=== PATIENT | female | born 1985 | race Caucasian/White ===

== ENCOUNTER 2016-09-18 22:00 | Inpatient (IN) | payer OTHER ==
[2016-09-18] MEDS ORDERED: OLIVE OIL 118 ML BTL MISC PRN (22:13)
[2016-09-18] MEDS ORDERED: OXYTOCIN/RINGERS LACTATE 1,000 ML IV PRN (22:13)
[2016-09-18] MEDS ORDERED: EPSOM SALT 454 GM TP PRN (22:13)
[2016-09-18] MEDS ORDERED: LR 1,000 ML IV PRN (22:13)
[2016-09-18] MEDS ORDERED: TERBUTALINE SULFATE 1 MG/ML VIAL IV PRN (22:13)
[2016-09-18] MEDS ORDERED: AMPICILLIN SODIUM 2 GM in NS 100 ML IV ONE (22:18)
[2016-09-18] MEDS ORDERED: AMPICILLIN SODIUM 2 GM/10 ML VIAL ONE (22:20)
[2016-09-18] MEDS ORDERED: NS 100 ML BAG (MINI-BAG) IV ONE (22:21)
[2016-09-18 22:56] LABS: % IMMATURE GRANULYOCYTES 0.7 % (0.0-1.1); ADD DIFF? NO; ADD MORPH? NO; ADD SCAN? NO; ATYPICAL LYMPHOCYTE FLAG 0 (0-99); FRAGMENT RBC FLAG 0 (0-99); HEMATOCRIT 37.1 % (38.0-47.0); HEMOGLOBIN 12.9 g/dL (12.6-16.3); LEFT SHIFT FLG 0 (0-99); LIPEMIA HEMOLYSIS FLAG 90 (0-99); MEAN CELL HEMOGLOBIN 30.6 pg (27.9-34.1); MEAN CELL HEMOGLOBIN CONCENTR. 34.8 g/dL (32.4-36.7); MEAN CELL VOLUME 88.1 fL (81.5-99.8); MEAN PLATELET VOLUME 10.8 fL (8.7-11.7); PLATELET CLUMPS FLAG 0 (0-99); PLATELET COUNT 199 10^3/uL (150-400); RED BLOOD CELL COUNT 4.21 10^6/uL (4.18-5.33); RED CELL DISTRIBUTION WIDTH 12.9 % (11.5-15.2)
[2016-09-18] MEDS ORDERED: AMMONIA AROMATIC 1 EACH AMP IH ONE (23:01)
[2016-09-18] MEDS ORDERED: TERBUTALINE SULFATE 1 MG/ML VIAL ONE (23:01)
[2016-09-18] MEDS ORDERED: LIDOCAINE 1% 300 MG/30 ML SDV ONE (23:01)
[2016-09-18] MEDS ORDERED: OLIVE OIL 118 ML BTL ONE (23:01)
[2016-09-18] MEDS ORDERED: OXYTOCIN 10 UNIT/ML VIAL ONE (23:02)
[2016-09-18] MEDS ORDERED: MISOPROSTOL 200 MCG TAB ONE (23:02)
[2016-09-18 23:05] LABS: ALANINE AMINOTRANSFERASE 31 IU/L (9-52); ASPARTATE AMINOTRANSFERASE 22 IU/L (14-46); BILIRUBIN,TOTAL 0.5 mg/dL (0.1-1.4); BILIRUBIN-CONJUGATED 0.3 mg/dL (0.0-0.5); BILIRUBIN-UNCONJUGATED 0.2 mg/dL (0.0-1.1); CREATININE 0.6 mg/dL (0.6-1.0); GLOMERULAR FILTRATION RATE > 60; LACTATE DEHYDROGENASE 503 IU/L (313-618); URIC ACID 7.1 mg/dL (2.5-6.8)
--- NOTE | 2016-09-19 00:03 | GHP ---
[f rep st] HISTORY AND PHYSICAL DATE OF ADMISSION: 09/18/2016 HISTORY UPON ADMISSION: The patient is a 31-year-old, G1, P0, at 39+ weeks gestation, with an estim ated due date of 09/24/2016, who presents due to increasing labor pattern with contractions every 3 minutes for several hours. The patient has had prodromal labor with contractions much of 09/17 as w ell as through the night and all day today. The patient's contraction pattern has not been very dil igent. This afternoon, the patient took a Benadryl to try to get some rest and had a short nap; how ever, then, the contractions really started increasing. Patient's bag of water intact upon arrival but was having mucousy bloody discharge throughout the day. Reporting good movement. The pat ient's hope and intent was to manage naturally through labor, but the patient requests nitrous upon admission. Patient's initial cervical exam was 8 cm dilated. CARE: The patient has been with [facility] since 8 weeks' gestation. Patient gonzalez s not had anything complicating her except for an ultrasound at 20 weeks showing large for gestational age at the 95th percentile, and a repeat ultrasound was performed at 30 weeks. At that time, the growth was at the 82nd percentile with normal fluid and normal placenta. No issues other than that. LABS: Maternal blood type O negative with negative antibody screen. RPR nonreactive. Rub tapan immune. Hepatitis B surface antigen negative. HIV negative. Cystic fibrosis, SMA, fragile X all negative. Pap smear normal. Gonorrhea and chlamydia are negative. Verifi testing was negative . MSAFP was negative. 1-hour Glucola was normal. Hematocrit 37% with a repeat 38%. GBS culture w as positive. PAST MEDICAL HISTORY: The patient has a history of morphea diagnosed in 2011 with decreased symptom s since the patient cut out gluten in her diet. PAST SURGICAL HISTORY: Right ulnar nerve and ligament repair in 2011. Tonsils removed in 1st grade . Also, patient with a history of a ruptured left Achilles tendon in 2011. ALLERGIES: No known drug allergies. CURRENT MEDICATIONS: vitamins. SOCIAL HISTORY: The patient is , lives with her , Ezequiel. Patient is a nonsmoker. No alcohol or drug use. Patient has no history of an eating disorder, however, has been overly focuse d on her weight in the past. PHYSICAL EXAMINATION: GENERAL: Upon admission, the patient is a well-developed, well-nourished, wh ite female, petite. The patient looks exhausted and is in moderate discomfort with contractions upo n admission. VITAL SIGNS: The patient's initial blood pressure was 137/90 with a repeat 134/82. T he patient is afebrile. The patient's last recorded weight was 155 pounds. Upon monitoring, the in itial assessment shows the fetus with an audible deceleration down to the 70s lasting 2-3 nanci kathryn but then was tracked upward with spontaneous recovery. The patient continues now with a categor y 2 tracing with infrequent variable decelerations. Baseline is in the 130s with good [id number]-xfce variability and accelerations. Contractions nonconsistent, anywhere from 3-7 minutes. Cervical exa m done by the nurse, Raymundo, upon admission, was 8 cm dilated, 90% effaced at 0 station. ASSESSMENT: Intrauterine at 39+ weeks, in active labor. There was no obvious palpable ba g of water but no story consistent with rupture of membranes. GBS culture is positive, and the stalin ent has gotten 1 dose of ampicillin. Rh negative. The patient received RhoGAM on July 04. PLAN: The patient will continue with nitrous for pain management, however, may have an epidural if desired. Due to borderline blood pressures upon admission, the patient had PIH labs drawn. We will watch patient's contraction pattern and offer AROM if the patient desires. /[id number]/MODL
[2016-09-19] MEDS ORDERED: fentaNYL 100 MCG/2 ML INJ ONE (00:19)
[2016-09-19] MEDS ORDERED: BUPIVACAINE 0.25% 30 ML SDV ONE (00:20)
[2016-09-19] MEDS ORDERED: PHENYLEPHRINE HCL 100 MCG/ML SYR ONE (00:20)
[2016-09-19] MEDS ORDERED: fentaNYL 2MCG/ML/BUP 0.1% RTU 100 ML BAG EP ONE (00:21)
--- NOTE | 2016-09-19 00:37 | OBPROG ---
OBG Progress Note Assessment/Plan: Assessment: IUP at 39w1d in active labor - protracted labor now getting JOSE LUIS Plan: check after JOSE LUIS and place IUPC if needed and pit prn 09/19/16 00:33 Subjective: Pt exhausted - tried tub but no help and felt nitrous only made her dizzy. requesting JOSE LUIS Objective: 09/18/16 22:40 09/18/16 22:40 Patient ABO/Rh O NEGATIVE 09/18/16 22:40 Uric Acid 7.1 mg/dL (2.5-6.8) H 09/18/16 22:40 Total Bilirubin 0.5 mg/dL (0.1-1.4) 09/18/16 22:40 Conjugated Bilirubin 0.3 mg/dL (0.0-0.5) 09/18/16 22:40 Unconjugated Bilirubin 0.2 mg/dL (0.0-1.1) 09/18/16 22:40 AST 22 IU/L (14-46) 09/18/16 22:40 ALT 31 IU/L (9-52) 09/18/16 22:40 Lactate Dehydrogenase 503 IU/L (313-618) 09/18/16 22:40 - SVE Dilation (cm): 8 Effacement (%): 90 Station: 0 Current Contraction Pattern: Regular (q 2-3 min) FHR (bpm): 130 FHR Pattern Variability: Moderate FHR Category: 1 Membranes: SROM (unknown timing - likely what pt felt was bloody mucus through much of day.) Amniotic Fluid Color: Blood Tinged ICD10 Worksheet Patient Problems: Problems 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
[2016-09-19] MEDS ORDERED: PHENYLEPHRINE HCL 100 MCG/ML SYR IVP PRN (01:19)
[2016-09-19] MEDS ORDERED: ONDANSETRON 4 MG/2 ML VIAL IVP PRN (01:19)
[2016-09-19] MEDS ORDERED: NALOXONE HCL 0.4 MG/ML INJ IVP PRN (01:19)
[2016-09-19] MEDS ORDERED: LR 500 ML IV SCH (01:30)
[2016-09-19] MEDS ORDERED: fentaNYL 2MCG/ML/BUP 0.1% RTU 100 ML EP SCH (01:30)
[2016-09-19] MEDS ORDERED: LR 500 ML IV PRN (02:35)
[2016-09-19] MEDS: AMPICILLIN SODIUM 1 GM in NS 100 ML IV SCH ×3 (02:36→15:03)
[2016-09-19] MEDS ORDERED: OXYTOCIN/RINGERS LACTATE 500 ML IV SCH (03:00)
--- NOTE | 2016-09-19 05:47 | OBPROG ---
OBG Progress Note Assessment/Plan: Assessment: IUP at 39w1d in active labor - protracted labor JOSE LUIS and on pitocin Plan: SROM of forebag with thin mec, complete 09/19/16 00:33 09/19/16 05:44 Subjective: Feeling pressure - not intense Objective: 09/18/16 22:40 09/18/16 22:40 Patient ABO/Rh O NEGATIVE 09/18/16 22:40 Uric Acid 7.1 mg/dL (2.5-6.8) H 09/18/16 22:40 Total Bilirubin 0.5 mg/dL (0.1-1.4) 09/18/16 22:40 Conjugated Bilirubin 0.3 mg/dL (0.0-0.5) 09/18/16 22:40 Unconjugated Bilirubin 0.2 mg/dL (0.0-1.1) 09/18/16 22:40 AST 22 IU/L (14-46) 09/18/16 22:40 ALT 31 IU/L (9-52) 09/18/16 22:40 Lactate Dehydrogenase 503 IU/L (313-618) 09/18/16 22:40 - SVE Dilation (cm): 10 Effacement (%): 100 Station: 0 Current Contraction Pattern: Regular (q 2-4 min on 8 mu/min pit) FHR (bpm): 130 FHR Pattern Variability: Moderate FHR Category: 2 (variables with quick recovery) Membranes: SROM (of forebag) Amniotic Fluid Color: Meconium Stained-Light ICD10 Worksheet Patient Problems: Problems 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
[2016-09-19] MEDS ORDERED: ACETAMINOPHEN 500 MG TAB PO ONE (06:30)
[2016-09-19] MEDS: IBUPROFEN 600 MG TAB PO PRN ×3 (08:10→20:07)
[2016-09-19] MEDS ORDERED: ACETAMINOPHEN 325 MG TAB PO PRN (08:20)
--- NOTE | 2016-09-19 08:25 | OBPROC ---
- Labor and Delivery Onset of Contractions Date: 09/18/16 Onset of Contractions Time: 17:00 Onset of Contractions Type: Augmented (SOOC but augmented with pit after JOSE LUIS) Rupture of Membranes Date: 09/19/16 Rupture of Membranes Time: 05:25 Rupture of Membranes Type: Spontaneous Amniotic Fluid Color: Meconium Stained-Light Dilation Complete Time: 05:24 Delivery Type: Spontaneous Placenta Delivery Date: 09/19/16 Placenta Delivery Time: 07:41 Episiotomy/Laceration: 2nd Degree, Midline, Perineal Repair: 2-0, 3-0, Vicryl EBL: 350 Complications: None - Medications Labor Augmentation/Induction Meds Used: Pitocin, Other (Specify) (Amp x 3 doses for GBS) Labor Augmentation/Induction Indication: Other (Specify) (arrest of dilation after JOSE LUIS) Anesthesia: Epidural - [place] Info A Delivery Date: 09/19/16 Delivery Time: 07:32 Sex of Infant: Female (Teresa) Score (1 Min): 8 Score (5 Min): 9
[2016-09-19 20:05] VITALS: RESP 16
[2016-09-19] MEDS: DOCUSATE SODIUM 100 MG CAP PO PRN (20:08)
[2016-09-20] MEDS: IBUPROFEN 600 MG TAB PO PRN ×2 (04:16→10:33)
[2016-09-20 09:58] VITALS: BP 112/71; PULSE 87; TEMP 98.2; O2SAT 94
[2016-09-20] MEDS: DOCUSATE SODIUM 100 MG CAP PO PRN (10:33)
--- NOTE | 2016-09-20 10:58 | SOAPPROG ---
SOAP Progress Note Assessment/Plan: Assessment PPD 1 s/p Plan: routine care 09/19/16 00:33 09/19/16 05:44 09/20/16 10:56 Subjective: Doing well - bottom sore but ok with ibu. bld has decreased. Working on BF and doing ok. urinating fine. Objective: Vital Signs Temp Pulse Resp BP Pulse Ox 36.8 C 87 16 112/71 94 09/20/16 08:00 09/20/16 08:00 09/20/16 08:00 09/20/16 08:00 09/20/16 08:00 Laboratory Results 09/18/16 22:40 09/18/16 22:40 09/19/16 09/20/16 09/21/16 05:59 05:59 05:59 Intake Total 3200 Output Total 1400 Balance 1800 Physical Exam - Physical Exam General Appearance: WD/WN Abdomen: non-tender, soft, other (FF at umb -2) Pelvic Exam: vaginal bleeding (normal lochia) Extremities: non-tender, pedal edema (minimal) Neuro/Psych: normal mood/affect ICD10 Worksheet Patient Problems: Problems Problem Status Onset GBS carrier Acute (spontaneous vaginal delivery) Acute - ICD10 Problem Qualifiers (1) GBS carrier
== END 2016-09-20 13:30 | disposition home or self-care (01) | DRG 775 ==
LOC: OBSVTOIN 22:00 → FLD 22:00 → FOB 09-19 11:22
PROVIDERS: ADMIT Obstetrics & Gynecology; ATTEND Obstetrics & Gynecology
PROC: 0KQM0ZZ Repair Perineum Muscle, Open Approach (ICD-10-PCS; principal; 2016-09-19)
PROC: 10E0XZZ Delivery of Products of Conception, External Approach (ICD-10-PCS; principal; 2016-09-19)
DX: O62.1 Secondary uterine inertia (principal); Z37.0 Single live birth; O99.824 Streptococcus B carrier state complicating childbirth; Z3A.39 39 weeks gestation of pregnancy; O70.1 Second degree perineal laceration during delivery
CPT/HCPCS: J0290; J2370; J2590; J3010; J3105